=== PATIENT | female | born 1965 | race Two or more races ===

== ENCOUNTER 2019-01-03 15:33 | Emergency (ER) | payer MEDICAID ==
[~2019-01-03] VITALS: Ht 154.9 cm; Wt 97.5 kg
[2019-01-03 15:51] VITALS: BP 167/78
== END 2019-01-03 16:43 | disposition home or self-care (01) ==
LOC: ER 15:37
DX: M77.9 Enthesopathy, unspecified (principal); J45.909 Unspecified asthma, uncomplicated; Z87.442 Personal history of urinary calculi; Z88.0 Allergy status to penicillin